=== PATIENT | female | born 1975 | race Caucasian/White ===

== ENCOUNTER 2020-08-02 22:03 | Emergency (ER) | payer BC ==
[2020-08-02] MEDS ORDERED: Sodium Chloride 0.9% 10 ML Syringe FLUSH PRN (22:05)
[2020-08-02] MEDS ORDERED: Iopamidol 612 MG/ML 100 ML Bottle IV SCH (22:15)
[2020-08-02] MEDS ORDERED: Sodium Chloride 0.9% 80 ML IV SCH (22:15)
[2020-08-02] MEDS ORDERED: fentaNYL 100 MCG/2 ML SDV IVPUSH ONE ×2 (22:35→23:45)
[2020-08-02] MEDS ORDERED: Ondansetron 4 MG/2 ML SDV IVPUSH ONE ×2 (22:35→23:45)
--- NOTE | 2020-08-02 22:35 | EDM.PDOC ---
ED HPI GENERAL MEDICAL PROBLEM - General Chief Complaint: Trauma Stated Complaint: HORSE RIDING ACCIDENT Time Seen by Provider: 08/02/20 22:05 Source of Information: Reports: Patient History Limitations: Reports: No Limitations - History of Present Illness INITIAL COMMENTS - FREE TEXT/NARRATIVE: Trauma activation 22:03 in the room at 2203. Cate is a 44-year-old female presenting to the ED for evaluation of major trauma related to being thrown from her horse. Patient was riding horseback but does not recall many details of what happened. She states that the horse spooked and threw her causing her to land on the ground. Patient was knocked out by report for approximately 10 minutes. She awakened with a headache, neck pain, back pain, and chest pain. Is unclear exactly where the horse threw her or how long it took to get her back to a vehicle. She is unaware of exactly what time this occurred. - Related Data Allergies Allergy/AdvReac Type Severity Reaction Status Date / Time morphine Allergy Itching Verified 05/18/20 13:09 Home Meds: Home Meds Amitriptyline [Elavil] 50 mg PO BEDTIME 05/18/20 [History] Gabapentin [Neurontin] 200 mg PO TID 05/18/20 [History] Spironolactone 50 mg PO BID 05/18/20 [History] Topiramate [Trokendi Xr] 100 mg PO BID 05/18/20 [History] Ubrogepant [Ubrelvy] 100 mg PO ASDIRECTED 05/18/20 [History] buPROPion [Wellbutrin SR] 200 mg PO DAILY 05/18/20 [History] Azelastine [Astelin Nasal Soln] 1 spray NASBOTH BID 08/02/20 [History] Pantoprazole [ProTONIX Granules] 40 mg PO BID 08/02/20 [History] buPROPion [Wellbutrin SR] 100 mg PO BEDTIME 08/02/20 [History] methocarbamoL [Methocarbamol] 750 mg PO QID PRN #28 tablet 08/02/20 [Rx] Review of Systems - Review of Systems Review Of Systems: Unable To Obtain Reason Not Obtained: Patient is somewhat confused about details but is able to answer Constitutional: Reports: No Symptoms Eyes: Reports: No Symptoms Ears: Reports: No Symptoms Nose: Reports: No Symptoms Mouth/Throat: Reports: No Symptoms Respiratory: Reports: No Symptoms Cardiovascular: Reports: Chest Pain GI/Abdominal: Reports: No Symptoms Musculoskeletal: Reports: Neck Pain, Back Pain, Joint Pain (Right wrist pain and left hip pain) Skin: Reports: Wound (2 cm laceration midline occipital scalp) Neurological: Reports: Confusion, Dizziness, Headache, Syncope Psychiatric: Reports: Anxiety ED EXAM, GENERAL - Physical Exam Exam: See Below Exam Limited By: No Limitations General Appearance: Alert, Anxious, Moderate Distress Eye Exam: Bilateral Eye: EOMI, PERRL Ears: Normal External Exam, Normal TMs Nose: Normal Inspection, Normal Mucosa Throat/Mouth: Normal Inspection, Normal Oropharynx, Normal Voice, No Airway Compromise Head: Other (2 cm vertical laceration midline occipital scalp) Neck: Other (Patient initially placed in a cervical collar for spine immobilization.) Respiratory/Chest: No Respiratory Distress, Other (Chest tenderness to palpation over the sternum, anterior chest, and midline back.) Cardiovascular: Normal Peripheral Pulses, Regular Rate, Rhythm, No Murmur Peripheral Pulses: 2+: Radial (L), Radial (R), Posterior Tibial (L), Posterior Tibial (R) GI/Abdominal: Normal Bowel Sounds, Soft, Non-Tender, No Abnormal Bruit Back Exam: Muscle Spasm (Mid thoracic and lower lumbar), Paraspinal Tenderness (Mid thoracic and lower lumbar), Vertebral Tenderness (T5-T8) Extremities: Normal Inspection, Normal Range of Motion, Normal Capillary Refill, Other (Tenderness in the right wrist without significant swelling tenderness in the left hip without discoloration) Neurological: Alert, CN II-XII Intact, Normal Cognition, No Motor/Sensory Deficits Psychiatric: Anxious Skin Exam: Warm, Dry, Wound/Incision (2 cm laceration that is vertical in the midline occipital scalp) Lymphatic: No Adenopathy Course - Vital Signs Last Recorded V/S: Last Vital Signs Temp 36.7 C 08/02/20 23:36 Pulse 93 08/02/20 23:36 Resp 15 08/02/20 23:21 BP 133/87 08/02/20 23:36 Pulse Ox 99 08/02/20 23:36 - Orders/Labs/Meds Orders: Active Orders 24 hr Category Date Time Status Hand Comp Min 3V Rt [CR] Stat Exams 08/02/20 22:55 Taken UA W/MICROSCOPIC [URIN] Stat Lab 08/02/20 22:05 Ordered Iopamidol [Isovue-300 (61%)] Med 08/02/20 22:15 Active 100 ml IV . DIRECTED Sodium Chloride 0.9% [Normal Saline] 80 ml Med 08/02/20 22:15 Active IV ASDIRECTED Sodium Chloride 0.9% [Saline Flush] Med 08/02/20 22:05 Active 10 ml FLUSH ASDIRECTED PRN Saline Lock Insert [OM.PC] Routine Oth 08/02/20 22:05 Ordered Medication Orders Sodium Chloride (Normal Saline) 80 mls @ 3 mls/sec IV ASDIRECTED RAMIREZ Last Admin: 08/02/20 22:27 Dose: 3 mls/sec Documented by: DONNA Iopamidol (Iopamidol 612 Mg/Ml 100 Ml Bottle) 100 ml IV . DIRECTED RAMIREZ Last Admin: 08/02/20 22:27 Dose: 100 ml Documented by: DONNA Sodium Chloride (Sodium Chloride 0.9% 10 Ml Syringe) 10 ml FLUSH ASDIRECTED PRN PRN Reason: Keep Vein Open Last Admin: 08/02/20 22:46 Dose: 10 ml Documented by: SCAR Labs: Laboratory Tests 08/02/20 08/02/20 08/02/20 Range/Units 22:15 22:15 22:15 WBC 13.8 H (4.5-11.0) K/uL RBC 4.89 (3.30-5.50) M/uL Hgb 14.6 (12.0-15.0) g/dL Hct 45.1 (36.0-48.0) % MCV 92 (80-98) fL MCH 30 (27-31) pg MCHC 32 (32-36) % Plt Count 329 (150-400) K/uL Neut % (Auto) 76.7 H (36-66) % Lymph % (Auto) 16.8 L (24-44) % Edgar % (Auto) 5.1 (2-6) % Eos % (Auto) 1.3 L (2-4) % Baso % (Auto) 0.1 (0-1) % PT 10.4 (9.5-12.0) sec INR 0.95 (0.80-1.20) APTT 24.5 L (27.0-36.0) sec Sodium 140 (140-148) mmol/L Potassium 3.7 (3.6-5.2) mmol/L Chloride 104 (100-108) mmol/L Carbon Dioxide 22 (21-32) mmol/L Anion Gap 14.1 H (5.0-14.0) mmol/L BUN 10 (7-18) mg/dL Creatinine 1.2 H (0.6-1.0) mg/dL Est Cr Clr Drug Dosing TNP Estimated GFR (MDRD) 49 L (>60) Glucose 85 (74-106) mg/dL Calcium 8.7 (8.5-10.1) mg/dL Total Bilirubin 0.5 (0.2-1.0) mg/dL AST 85 H (15-37) U/L ALT 47 (12-78) U/L Alkaline Phosphatase 75 (46-116) U/L Total Protein 7.2 (6.4-8.2) g/dL Albumin 3.8 (3.4-5.0) g/dL Globulin 3.4 (2.3-3.5) g/dL Albumin/Globulin Ratio 1.1 L (1.2-2.2) Ethyl Alcohol mg/dL 08/02/20 Range/Units 22:15 WBC (4.5-11.0) K/uL RBC (3.30-5.50) M/uL Hgb (12.0-15.0) g/dL Hct (36.0-48.0) % MCV (80-98) fL MCH (27-31) pg MCHC (32-36) % Plt Count (150-400) K/uL Neut % (Auto) (36-66) % Lymph % (Auto) (24-44) % Edgar % (Auto) (2-6) % Eos % (Auto) (2-4) % Baso % (Auto) (0-1) % PT (9.5-12.0) sec INR (0.80-1.20) APTT (27.0-36.0) sec Sodium (140-148) mmol/L Potassium (3.6-5.2) mmol/L Chloride (100-108) mmol/L Carbon Dioxide (21-32) mmol/L Anion Gap (5.0-14.0) mmol/L BUN (7-18) mg/dL Creatinine (0.6-1.0) mg/dL Est Cr Clr Drug Dosing Estimated GFR (MDRD) (>60) Glucose (74-106) mg/dL Calcium (8.5-10.1) mg/dL Total Bilirubin (0.2-1.0) mg/dL AST (15-37) U/L ALT (12-78) U/L Alkaline Phosphatase (46-116) U/L Total Protein (6.4-8.2) g/dL Albumin (3.4-5.0) g/dL Globulin (2.3-3.5) g/dL Albumin/Globulin Ratio (1.2-2.2) Ethyl Alcohol 71 mg/dL Meds: Medications Generic Name Dose Route Start Last Admin Trade Name Uyen PRN Reason Stop Dose Admin Sodium Chloride 80 mls @ 3 mls/sec 08/02/20 22:15 08/02/20 22:27 Normal Saline IV 3 mls/sec ASDIRECTED RAMIREZ Administration Iopamidol 100 ml 08/02/20 22:15 08/02/20 22:27 Iopamidol 612 Mg/Ml 100 Ml Bottle IV 100 ml . DIRECTED RAMIREZ Administration Sodium Chloride 10 ml 08/02/20 22:05 08/02/20 22:46 Sodium Chloride 0.9% 10 Ml Syringe FLUSH 10 ml ASDIRECTED PRN Administration Keep Vein Open Discontinued Medications Generic Name Dose Route Start Last Admin Trade Name Uyen PRN Reason Stop Dose Admin Dexamethasone 10 mg 08/03/20 00:16 08/03/20 00:31 Dexamethasone 4 Mg/Ml Sdv IVPUSH 08/03/20 00:17 10 mg ONETIME ONE Administration Diphenhydramine HCl 25 mg 08/03/20 00:16 08/03/20 00:28 Diphenhydramine 50 Mg/Ml Sdv IVPUSH 08/03/20 00:17 25 mg ONETIME ONE Administration Fentanyl 100 mcg 08/02/20 22:35 08/02/20 22:46 Fentanyl 100 Mcg/2 Ml Sdv IVPUSH 08/02/20 22:36 100 mcg ONETIME ONE Administration Fentanyl 50 mcg 08/02/20 23:45 08/03/20 00:00 Fentanyl 100 Mcg/2 Ml Sdv IVPUSH 08/02/20 23:46 50 mcg ONETIME ONE Administration Ketorolac Tromethamine 30 mg 08/03/20 00:16 08/03/20 00:25 Ketorolac 30 Mg/Ml Sdv IVPUSH 08/03/20 00:17 30 mg ONETIME ONE Administration Methocarbamol 1,000 mg 08/02/20 23:53 08/03/20 00:02 Methocarbamol 500 Mg Tab PO 08/02/20 23:54 1,000 mg ONETIME ONE Administration Ondansetron HCl 4 mg 08/02/20 22:35 08/02/20 22:44 Ondansetron 4 Mg/2 Ml Sdv IVPUSH 08/02/20 22:36 4 mg ONETIME ONE Administration Ondansetron HCl 4 mg 08/02/20 23:45 08/03/20 00:00 Ondansetron 4 Mg/2 Ml Sdv IVPUSH 08/02/20 23:46 4 mg ONETIME ONE Administration Prochlorperazine Edisylate 10 mg 08/03/20 00:16 08/03/20 00:31 Prochlorperazine 10 Mg/2 Ml Sdv IVPUSH 08/03/20 00:17 10 mg ONETIME ONE Administration - Radiology Interpretation Free Text/Narrative:: I reviewed the CT of the head without contrast as well as the report. There was no acute intracranial abnormality or cranial abnormality. There is a small hematoma over the parietal occiput adjacent to the laceration. I reviewed the imaging and report on the CT of the cervical spine without contrast. There is no acute abnormalities including fracture, subluxation, or spondylolisthesis. I reviewed the imaging and report on the CT of the cast, abdomen and pelvis with contrast. There is no acute abnormalities in the chest, abdomen, or pelvis. - Re-Assessments/Exams Free Text/Narrative Re-Assessment/Exam: 08/02/20 23:49 I reviewed the x-rays including the CT of the head, cervical spine, chest abdomen and pelvis, and right hand. There is no evidence for acute abnormality in any of the imaging. Reviewed the patient's labs showing a leukocyte count of 13.8 with a hemoglobin of 14.6 and a hematocrit of 45.1. Her platelet count is 329,000. Patient's comprehensive metabolic panel is unremarkable. Her PT and PTT are both normal. Her ethanol level is 71. Urinalysis showed The patient continued to have nausea, significant headache, and dizziness. These are remarkable for an acute concussion with LOC of approximately 10 minutes. Patient was instructed to rest over the next couple of days or until her headache is gone without the need of Tylenol or ibuprofen for least 24 hours. We will likely put the patient on methocarbamol for muscle relaxation and Zofran for ongoing treatment of nausea. She may take Aleve, ibuprofen, or acetaminophen for pain control. She will likely need a little bit of hydrocodone over the next couple of days for breakthrough pain. 08/03/20 01:11 the patient was complaining of migraine headache and it was treated with Toradol 30 mg IV, Compazine 10 mg IV, diphenhydramine 25 mg IV, and dexamethasone 10 mg IV with complete resolution of headache. At this time, the patient is suitable for discharge home in satisfactory condition. Indications return to the ED were discussed. Departure - Departure Time of Disposition: 01:12 Disposition: Home, Self-Care 01 Clinical Impression: Animal-rider injured by fall from or being thrown from horse in noncollision accident, initial encounter, Head injury, closed, with LOC of unknown duration, Contusion of right hand, initial encounter, Contusion of left hip, initial encounter Concussion Qualifiers: Encounter type: initial encounter Loss of consciousness presence/duration: with LOC of 30 min or less Qualified Code(s): S06.0X1A - Concussion with loss of consciousness of 30 minutes or less, initial encounter Acute cervical myofascial strain Qualifiers: Encounter type: initial encounter Qualified Code(s): S16.1XXA - Strain of muscle, fascia and tendon at neck level, initial encounter Acute lumbar myofascial strain Qualifiers: Encounter type: initial encounter Qualified Code(s): S39.012A - Strain of m uscle, fascia and tendon of lower back, initial encounter Chest wall contusion Qualifiers: Encounter type: initial encounter Laterality: unspecified laterality Qualified Code(s): S20.219A - Contusion of unspecified front wall of thorax, initial encounter Occipital scalp laceration Qualifiers: Encounter type: initial encounter Qualified Code(s): S01.01XA - Laceration without foreign body of scalp, initial encounter Migraine Qualifiers: Migraine type: without aura Status migrainosus presence: without status migrainosus Intractability: not intractable Qualified Code(s): G43.009 - Migraine without aura, not intractable, without status migrainosus - Discharge Information Prescriptions: methocarbamoL [Methocarbamol] 750 mg PO QID PRN #28 tablet PRN Reason: Muscle Spasm - Painful Instructions: Concussion, Adult, [id number], Head Injury, Adult, Laceration Care, Adult, Cervical Strain and Sprain Rehab-SportsMed, Hand Contusion, Lumbosacral Strain, Blunt Chest Trauma Referrals: PCP,None [Primary Care Provider] - Forms: ED Department Discharge Care Plan Goals: Your work-up today has demonstrated many injuries related to being thrown from the horse including scalp laceration which was closed using pan. These will need to be removed in 7 days which can be done at the clinic. You also suffered a concussion. My recommendation is to rest in a low stimulation environment until your headache is gone for least 24 hours without the need for Tylenol or ibuprofen. You may take these to control your headache in the meantime. You may also take Zofran to control your nausea. It is critically important that you rest the brain and allow it to recover from the swelling as a result of the closed head injury. Not doing so we will raise your risk of having ongoing issues like seizures, memory loss, or even paralysis. He also suffered a cervical strain which is essentially whiplash. We will put you on methocarbamol 750 mg 4 times a day as needed for muscle spasm. I would like you to take Tylenol or ibuprofen for the pain control but have provided you with a prescription for 8 hydrocodone which is a narcotic for severe breakthrough pain. Use it sparingly as it can cause constipation and it is addictive. He also suffered blunt chest trauma and bruising of the chest wall. There was no evidence in your work-up of either of sternum or rib fracture but sometimes bruising actually feels worse than fracture. Again my hope is that the Tylenol or ibuprofen is adequate to control the pain. Finally, you sustained a strain to your low back as well and bruising to the right hand and left hip. These will take time to heal. Ice may be beneficial to reduce swelling but there was no evidence of fractures at either location. Sepsis Event Note (ED) - Focused Exam Vital Signs: Vital Signs Temp Pulse Resp BP Pulse Ox 08/02/20 23:36 36.7 C 93 133/87 99 08/02/20 23:21 97 15 118/78 08/02/20 23:06 102 H 10 L 133/79 08/02/20 22:51 96 13 126/83 99 08/02/20 22:38 100 15 127/72 97 08/02/20 22:23 109 H 132/103 H 08/02/20 22:06 95 17 137/96 H 100 - Problem List & Annotations (1) Acute cervical myofascial strain SNOMED Code(s): 401569792, 376302585, 713560158 Code(s): S16.1XXA - STRAIN OF MUSCLE, FASCIA AND TENDON AT NECK LEVEL, INIT Status: Acute Priority: High Current Visit: Yes Qualifiers: Encounter type: initial encounter Qualified Code(s): S16.1XXA - Strain of muscle, fascia and tendon at neck level, initial encounter (2) Acute lumbar myofascial strain SNOMED Code(s): 290754627, 34884274, 359375358 Code(s): S39.012A - STRAIN OF MUSCLE, FASCIA AND TENDON OF LOWER BACK, INIT Status: Acute Priority: High Current Visit: Yes Qualifiers: Encounter type: initial encounter Qualified Code(s): S39.012A - Strain of muscle, fascia and tendon of lower back, initial encounter (3) Animal-rider injured by fall from or being thrown from horse in noncollision accident, initial encounter SNOMED Code(s): 971749238, 580832533 Code(s): V80.010A - ANIML-RIDR INJURED BY FALL FR HORSE IN NONCLSN ACC, INIT Status: Acute Priority: High Current Visit: Yes (4) Chest wall contusion SNOMED Code(s): 42423582 Code(s): S20.219A - CONTUSION OF UNSPECIFIED FRONT WALL OF THORAX, INIT ENCNTR Status: Acute Priority: High Current Visit: Yes Qualifiers: Encounter type: initial encounter Laterality: unspecified laterality Qualified Code(s): S20.219A - Contusion of unspecified front wall of thorax, initial encounter (5) Concussion SNOMED Code(s): 268266447 Code(s): S06.0X9A - CONCUSSION W LOSS OF CONSCIOUSNESS OF UNSP DURATION, INIT Status: Acute Priority: High Current Visit: Yes Qualifiers: Encounter type: initial encounter Loss of consciousness presence/duration: with LOC of 30 min or less Qualified Code(s): S06.0X1A - Concussion with loss of consciousness of 30 minutes or less, initial encounter (6) Contusion of left hip, initial encounter SNOMED Code(s): 85873565 Code(s): S70.02XA - CONTUSION OF LEFT HIP, INITIAL ENCOUNTER Status: Acute Priority: High Current Visit: Yes (7) Contusion of right hand, initial encounter SNOMED Code(s): 4930310 Code(s): S60.221A - CONTUSION OF RIGHT HAND, INITIAL ENCOUNTER Status: Acute Priority: High Current Visit: Yes (8) Head injury, closed, with LOC of unknown duration SNOMED Code(s): 871886040560, 282657871673 Code(s): S06.9X9A - UNSP INTRACRANIAL INJURY W LOC OF UNSP DURATION, INIT Status: Acute Priority: High Current Visit: Yes (9) Occipital scalp laceration SNOMED Code(s): 758037181 Code(s): S01.01XA - LACERATION WITHOUT FOREIGN BODY OF SCALP, INITIAL ENCOUNTER Status: Acute Priority: High Current Visit: Yes Qualifiers: Encounter type: initial encounter Qualified Code(s): S01.01XA - Laceration without foreign body of scalp, initial encounter (10) Migraine SNOMED Code(s): 61765983 Code(s): G43.909 - MIGRAINE, UNSP, NOT INTRACTABLE, WITHOUT STATUS MIGRAINOSUS Status: Acute Priority: High Current Visit: Yes Qualifiers: Migraine type: without aura Status migrainosus presence: without status migrainosus Intractability: not intractable Qualified Code(s): G43.009 - Migraine without aura, not intractable, without status migrainosus - Problem List Review Problem List Initiated/Reviewed/Updated: Yes - My Orders Last 24 Hours: My Active Orders 08/02/20 22:05 UA W/MICROSCOPIC [URIN] Stat Sodium Chloride 0.9% [Saline Flush] 10 ml FLUSH ASDIRECTED PRN Saline Lock Insert [OM.PC] Routine 08/02/20 22:15 Iopamidol [Isovue-300 (61%)] 100 ml IV . DIRECTED Sodium Chloride 0.9% [Normal Saline] 80 ml IV ASDIRECTED 08/02/20 22:55 Hand Comp Min 3V Rt [CR] Stat - Assessment/Plan Last 24 Hours: My Active Orders 08/02/20 22:05 UA W/MICROSCOPIC [URIN] Stat Sodium Chloride 0.9% [Saline Flush] 10 ml FLUSH ASDIRECTED PRN Saline Lock Insert [OM.PC] Routine 08/02/20 22:15 Iopamidol [Isovue-300 (61%)] 100 ml IV . DIRECTED Sodium Chloride 0.9% [Normal Saline] 80 ml IV ASDIRECTED 08/02/20 22:55 Hand Comp Min 3V Rt [CR] Stat
--- NOTE | 2020-08-02 23:26 | CRLCT ---
For Patients: As a result of the Century Cures Act, medical imaging exams and procedure reports are released immediately into your electronic medical record. You may view this report before your referring provider. If you have questions, please contact your health care provider. INDICATION: Pain after fall from horse. COMPARISON: None available. TECHNIQUE: CT examination of the head was performed with 2 and 3 mm thick axial and 2 mm thick coronal and sagittal sections without intravenous contrast. Images were obtained from the vertex of the skull through the skull base, and I examined the images with the brain and bone windows. Please note that all CT scans at this facility use dose modulation, iterative reconstruction, and/or weight-based dosing when appropriate to reduce radiation dose to as low as reasonably achievable. FINDINGS: : There is a mild right high posterior parietal external subperiosteal hematoma with no sign fracture of the underlying calvarium and no sign of injury to the underlying brain. Incidental note is made of a vascular foramina crossing the right high posterior parietal calvarium in the region of the hematoma. This is not a fracture. The brain is normal in appearance for the patient`s age on today`s study, with no sign of mass lesion, mass effect, hemorrhage, or edema. The ventricles and sulci are normal in appearance for the patient`s age. The visualized portions of the orbits are normal in appearance. The visualized portions of the paranasal sinuses and mastoids are clear. The osseous structures are normal in their appearance with no sign of abnormality in the skull base or calvarium. IMPRESSION: Mild right high posterior parietal external subperiosteal hematoma. No sign fracture of the underlying calvarium and no sign of injury to the underlying brain. Normal CT appearance of the brain with no sign of closed-head injury. Please note that all CT scans at this facility use dose modulation, iterative reconstruction, and/or weight-based dosing when appropriate to reduce radiation dose to as low as reasonably achievable. Dictated by Kyaw De La Cruz MD @ 08/02/2020 11:25:[address] Kyaw De La Cruz @ Aug 02 2020 11:25PM
--- NOTE | 2020-08-02 23:33 | CRLCT ---
For Patients: As a result of the Century Cures Act, medical imaging exams and procedure reports are released immediately into your electronic medical record. You may view this report before your referring provider. If you have questions, please contact your health care provider. INDICATION: Pain after fall from a horse. COMPARISON: None available TECHNIQUE: CT examination of the cervical spine is performed without contrast using spiral technique. 2 mm thick axial, sagittal and coronal reconstructions were made. Please note that all CT scans at this facility use dose modulation, iterative reconstruction, and/or weight-based dosing when appropriate to reduce radiation dose to as low as reasonably achievable. FINDINGS: : There is no sign of fracture or subluxation. The cervical vertebral bodies and intervertebral discs are normal in height and are in anatomic alignment. There is no sign of prevertebral soft tissue swelling. The airway structures are normal in appearance. The visualized skull base is normal in appearance. The visualized inferior brain is normal in appearance for the patient`s age. The apices of the lungs are clear. IMPRESSION: Normal CT of the cervical spine with no sign of acute injury. Please note that all CT scans at this facility use dose modulation, iterative reconstruction, and/or weight-based dosing when appropriate to reduce radiation dose to as low as reasonably achievable. Dictated by Kyaw De La Cruz MD @ 08/02/2020 11:31:[address] Kyaw De La Cruz @ Aug 02 2020 11:31PM
--- NOTE | 2020-08-02 23:43 | CRLCT ---
For Patients: As a result of the Century Cures Act, medical imaging exams and procedure reports are released immediately into your electronic medical record. You may view this report before your referring provider. If you have questions, please contact your health care provider. INDICATION: Sternal and mid back pain after fall from horse. COMPARISON: None available TECHNIQUE: CT examination of the chest, abdomen, and pelvis was performed with the uneventful intravenous administration of 100 cc of Isovue-300 while 3 mm thick axial sections were obtained from above the apices of the lungs through the symphysis pubis. Oral contrast was not administered. Please note that all CT scans at this facility use dose modulation, iterative reconstruction, and/or weight-based dosing when appropriate to reduce radiation dose to as low as reasonably achievable. FINDINGS: : In the chest, the lungs are clear with no sign of significant infiltrate or mass. There is no sign of pneumothorax, pleural effusion, pulmonary contusion, or pleural hematoma. There is no sign of mediastinal or hilar mass or adenopathy. The heart is normal in appearance for the patient`s age. There is age appropriate appearance of the thoracic aorta and ascending great vessels. There is no sign of supraclavicular or axillary mass or adenopathy. Bilateral breast prostheses are present with no sign of any leak. There is no sign of fracture of the ribs, visualized shoulder girdle, sternum, manubrium, or thoracic spine. In the abdomen, the liver, spleen, pancreas, and adrenals are normal in appearance. The kidneys are normal in appearance. The gallbladder is normal in appearance. The abdominal aorta is normal in caliber with no sign of dilatation. There is no sign of retroperitoneal mass or adenopathy. The stomach, loops of small bowel, and colon in the abdomen are normal in appearance. In the pelvis, the appendix is normal in appearance with no sign of inflammatory process. The loops of small bowel and colon in the pelvis are normal in appearance. The uterus is absent and the adnexal regions are normal in appearance. The urinary bladder is normal in appearance. There is no sign of pelvic or inguinal mass or adenopathy. There is no sign of free air or free fluid in the abdomen or pelvis. There is no sign of fracture of the lumbar spine. 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 The L5-S1 disc space is normal in height. There is no sign of fracture or dislocation of the pelvis or hips. IMPRESSION: No sign of traumatic injury to the chest, abdomen, or pelvis. CT of the chest shows intact appearance of bilateral breast prostheses with no sign of any leak.. Normal CT of the abdomen with contrast. CT of the pelvis shows changes of hysterectomy. Please note that all CT scans at this facility use dose modulation, iterative reconstruction, and/or weight-based dosing when appropriate to reduce radiation dose to as low as reasonably achievable. Dictated by Kyaw De La Cruz MD @ 08/02/2020 11:42:[address] Kyaw De La Cruz @ Aug 02 2020 11:42PM
[2020-08-02] MEDS ORDERED: Methocarbamol 500 MG Tab PO ONE (23:53)
[2020-08-03] MEDS ORDERED: Dexamethasone 4 MG/ML SDV IVPUSH ONE (00:16)
[2020-08-03] MEDS ORDERED: diphenhydrAMINE 50 MG/ML SDV IVPUSH ONE (00:16)
[2020-08-03] MEDS ORDERED: Prochlorperazine 10 MG/2 ML SDV IVPUSH ONE (00:16)
[2020-08-03] MEDS ORDERED: Ketorolac 30 MG/ML SDV IVPUSH ONE (00:16)
--- NOTE | 2020-08-03 08:42 | CR ---
Hand Comp Min 3V Rt CLINICAL HISTORY: Pain FINDINGS: Study is limited due to flexion at the fingers. Patient was unable to straighten. There is no acute fracture or dislocation of the hand. Impression: Limited study No fracture seen
== END 2020-08-03 01:37 | disposition home or self-care (01) ==
LOC: JP.ED 22:03
DX: S06.0X1A Concussion with loss of consciousness of 30 minutes or less, initial encounter (principal); S01.01XA Laceration without foreign body of scalp, initial encounter; S16.1XXA Strain of muscle, fascia and tendon at neck level, initial encounter; S39.012A Strain of muscle, fascia and tendon of lower back, initial encounter; S20.219A Contusion of unspecified front wall of thorax, initial encounter; G43.009 Migraine without aura, not intractable, without status migrainosus; Z88.5 Allergy status to narcotic agent; Z79.899 Other long term (current) drug therapy; V80.010A Animal-rider injured by fall from or being thrown from horse in noncollision accident, initial encounter
CPT/HCPCS: 36415; 70450; 71260; 72125; 73130; 74177; 80053; 80307; 85025; 85610; 85730; 96374; 96375; 96376; 99284; A9270; J0780; J1100; J1200; J1885; J2405; J3010; Q9967